=== PATIENT | male | born 1980 | race Two or more races ===

== ENCOUNTER → 2018-07-11 | Outpatient (CLI) | payer OTHER | END | disposition home or self-care (01) | LOC: CARD 10:04 | PROVIDERS: ATTEND Family Medicine | DX: R26.89 Other abnormalities of gait and mobility (principal); M25.579 Pain in unspecified ankle and joints of unspecified foot; M21.969 Unspecified acquired deformity of unspecified lower leg; E78.5 Hyperlipidemia, unspecified; F12.90 Cannabis use, unspecified, uncomplicated; F32.9 Major depressive disorder, single episode, unspecified; Z72.89 Other problems related to lifestyle | CPT/HCPCS: 95886; 95909 ==